=== PATIENT | male | born 1980 | race Caucasian/White ===

== ENCOUNTER → 2020-04-16 | Outpatient (REF) | payer OTHER ==
[2020-04-16 14:37] LABS: APPEARANCE, URINE HAZY (CLEAR); BACTERIA, URINE AUTO NEGATIVE (NEGATIVE); BILIRUBIN, URINE AUTO NEGATIVE (NEGATIVE); BLOOD, URINE BLOOD NEGATIVE (NEGATIVE); CALCIUM OXALATE CRYSTALS SMALL; COLOR, URINE YELLOW (YELLOW); GLUCOSE, URINE (UA) AUTO NEGATIVE (NEGATIVE); KETONE, URINE AUTO NEGATIVE (NEGATIVE); LEUKOCYTE ESTERASE, URINE AUTO NEGATIVE (NEGATIVE); MUCUS, URINE SMALL (NEGATIVE); NITRITE, URINE AUTO NEGATIVE (NEGATIVE); PROTEIN, URINE AUTO NEGATIVE (NEGATIVE); RBC, URINE AUTO 0 /HPF (0-3); SQUAMOUS EPITHELIAL CELL UR AU 0 /HPF (0-6); UROBILINOGEN, URINE AUTO 0.2 mg/dL (0.0-2.0); WBC, URINE AUTO 1 /HPF (0-3)
== END ==
LOC: M SMT 13:29
PROVIDERS: ATTEND Nurse Practitioner Family
DX: N53.12 Painful ejaculation (principal)
CPT/HCPCS: 81001; 87086; G0463

== ENCOUNTER → 2020-04-23 | Outpatient (CLI) | payer OTHER ==
--- NOTE | 2020-04-23 09:46 | REP ---
INDICATION: PAINFUL EJACULATION. COMPARISON: None. TECHNIQUE: High-resolution bilateral scrotal sonography is carried out with Doppler. FINDINGS: Testicular sonographic parenchyma is homogeneous. No intratesticular mass lesion is seen on either side. Right testicular dimensions are 4.2 x 2.7 x 2.9 cm. Left testis measures 3.9 x 2.1 x 2.9 cm. Epididymi are unremarkable. Testicular Doppler flow is normal bilaterally. Resistive indices are measured at 0.51 on the right and 0.48 on the left. No scrotal wall edema is appreciated. There is no evidence of significant hydrocele, varicocele, or hernia. IMPRESSION: Normal bilateral scrotal sonography. <Electronically signed by Lee Patrick > 04/23/20 [id number]
== END ==
LOC: EDUNIT# 07:30 → M RAD 07:32
PROVIDERS: ATTEND Nurse Practitioner Family
DX: N53.12 Painful ejaculation (principal)

== ENCOUNTER → 2020-05-15 | Outpatient (CLI) | payer OTHER ==
--- NOTE | 2020-05-15 13:59 | REP ---
INDICATION: GROIN PAIN COMPARISON: None. TECHNIQUE: Helical scanning is acquired in 3 mm axial images were reformatted. Coronal and sagittal MPR images were generated and reviewed. FINDINGS: Preliminary digital camera maker radiograph demonstrates an unremarkable bowel gas pattern. The lung bases are clear on axial CT images bilaterally. There is no evidence of pleural effusion or upper abdominal ascites. The liver and the spleen are normal in size homogeneous in texture. There is a tiny accessory splenule along the inferior aspect of the spleen. Normal adrenal glands are observed bilaterally. No abnormality is noted in the pancreas. The gallbladder is unremarkable. No retroperitoneal mass or adenopathy is seen. Small and large intestinal bowel loops are normal in the upper abdomen. Pelvic CT images demonstrate surgical clips adjacent to the cecal tip. This would appear to represent previous appendectomy. However, the patient did not report this prior surgery. I do not see the appendix. There are no inflammatory changes. There is some vascular calcification in the common iliac arteries bilaterally mild in degree. No inguinal mass or adenopathy is seen. No pelvic adenopathy or mass lesion is observed. There are pelvic phleboliths. Seminal vesicles and prostate are unremarkable. The kidneys show no evidence of hydronephrosis. There is an intrarenal calculus in the lower pole of the left kidney measuring 2-3 mm. This is best seen on coronal multiplanar re-formation image. No other nephrolithiasis is appreciated. No ureteral stone or bladder stone is seen. Bone window settings show no bony destructive lesion. IMPRESSION: Intrarenal nephrolithiasis lower pole left kidney where there is a 2-3 mm calculus. No hydronephrosis. No other urinary tract calculus seen. The patient appears to be status post appendectomy. <Electronically signed by Lee Patrick > 05/15/20 [id number]
== END ==
LOC: M RAD 07:17
PROVIDERS: ATTEND Nurse Practitioner Family
DX: N20.0 Calculus of kidney (principal)